=== PATIENT | female | born 1950 | race Caucasian/White ===

== ENCOUNTER 2018-01-06 11:41 | Outpatient (CLI) | payer MEDICARE, OTHER ==
[2015-02-12 11:06] VITALS: BP 136/78
--- NOTE | 2018-01-06 16:20 | Diagnostic Imaging Report ---
LINDA LINDSEY [facility] [address] [facility] [address] [address] Report Submission Date: January 06, 2018 12:45:35 PM CDT Patient Study Name: ELVER ALCOCER Date: January 06, 2018 11:51:52 AM CDT Modality Type: DX Gender: F Description: LOWER EXTREMITY : 50 Institution: [facility] Physician: LINDA LINDSEY Examination: Plain film left foot History: LEFT FOOT, PAIN AND BRUSING AFTER STUBBED LEFT 5TH DIGIT YESTERDAY (Hx ) Findings: 3 views of the left foot demonstrates osteopenia. Mild articular degenerative changes. No fracture or dislocation. Calcaneal spur. No soft tissue swelling. No joint effusion. Impression: Osteopenia and degenerative changes. No fracture. Electronically signed on January 06, 2018 12:45:35 PM CDT by: Vinayak KOEHLER
== END 2018-01-06 11:43 ==
LOC: RAD 11:41
PROVIDERS: ATTEND Physician Assistant
DX: M79.672 Pain in left foot (principal)
CPT/HCPCS: 73630

== ENCOUNTER 2018-05-04 11:46 | Outpatient (CLI) | payer MEDICARE, OTHER ==
[2015-02-12 11:06] VITALS: BP 136/78
--- NOTE | 2018-05-04 15:38 | Diagnostic Imaging Report ---
LINDA LINDSEY [facility] [address] [facility] [address] [place], [place]. [address] Report Submission Date: May 04, 2018 2:36:07 PM CDT Patient Study Name: ELVER ALCOCER Date: May 04, 2018 11:53:41 AM CDT Modality Type: CT\SR Gender: F Description: CT ABD PELVIS W/O CO : 50 Institution: [facility] Physician: LINDA LINDSEY CT abdomen and pelvis without contrast History: Hematuria and right flank pain Technique: Helically acquired images were obtained from the hemidiaphragms to the pelvic floor without IV or oral contrast using stone protocol. Findings: Lung bases are clear aside from mild atelectasis posteromedially at the right lung base adjacent to prominent osteophytes of the thoracic spine. On these images without IV contrast, which limits solid organ evaluation, the liver, spleen, adrenal glands and pancreas appear unremarkable. There has been a cholecystectomy. There are no renal or ureteral stones. At the upper pole of the right kidney, there is a hypodense and smoothly marginated mass with internal Hounsfield units of 5-14 consistent with a 3 cm cyst. Aortic atherosclerosis is present without aneurysm. Small and large bowel loops are normal in caliber. There is quite small fat containing periumbilical hernia. There is been a hysterectomy. The bladder is decompressed. There is no free fluid in the abdomen or pelvis. Posterior fusion hardware is present at L5/S1. There is considerable beam hardening artifact but there is a grade 2 anterolisthesis of L4 upon L5. Multilevel disc space narrowing with vacuum disc phenomenon is present at the lower thoracic and upper lumbar spine. Impression: Postoperative and degenerative findings of the spine as described. Status post cholecystectomy. 3 cm cyst upper pole right kidney. Aortic atherosclerosis. No acute intra-abdominal or intrapelvic abnormality. No nephro- or urolithiasis. Electronically signed on May 04, 2018 2:36:07 PM CDT by: Doreen KOEHLER
== END 2018-05-04 11:47 ==
LOC: RAD 11:46
PROVIDERS: ATTEND Physician Assistant
DX: R31.9 Hematuria, unspecified (principal); R10.9 Unspecified abdominal pain
CPT/HCPCS: 74176

== ENCOUNTER 2018-09-28 15:54 | Outpatient (CLI) | payer MEDICARE, OTHER, MEDICAID ==
[2015-02-12 11:06] VITALS: BP 136/78
[2018-09-28 16:24] LABS: BASOPHILS % 0.6 (0.0-1.5); EOSINOPHILS % 2.6 % (0.0-6.8); MONOCYTES % 5.4 % (0.0-11.0)
[2018-09-28 16:25] LABS: NEUTROPHILS # 4.7 # k/uL (1.4-7.7)
[2018-09-28 16:53] LABS: eGFR (Non-African) > 60
--- NOTE | 2018-09-28 20:54 | Diagnostic Imaging Report ---
NAGA SANTOS [facility] [address] [facility] [address] [address] Report Submission Date: Sep 28, 2018 5:21:00 PM ENGINEERING LAB TECHNICIAN Patient Study Name: ELVER ALCOCER Date: Sep 28, 2018 4:47:58 PM ENGINEERING LAB TECHNICIAN Modality Type: DX Gender: F Description: CHEST 2VIEW : 50 Institution: [facility] Physician: NAGA SANTOS Chest, 2 view History: Recent flu Findings: The heart size is mildly enlarged. There is atherosclerosis of the aorta.. The lungs are free of acute infiltrate but there is chronic coarsening the central bronchovascular markings. There is no pleural effusion or pneumothorax identified. The osseous structures are normal. Impression: 1. No acute pulmonary disease. 2. Mild cardiomegaly and aortic atherosclerosis. Electronically signed on Sep 28, 2018 5:21:00 PM ENGINEERING LAB TECHNICIAN by: Cody KOEHLER
--- NOTE | 2018-10-08 11:06 | Diagnostic Imaging Report ---
NAGA SANTOS [facility] [address] [facility] [address] [address] Report Submission Date: Sep 28, 2018 6:55:46 PM ZIPPER MEASURER Patient Study Name: ELVER ALCOCER Date: Sep 28, 2018 5:58:25 PM ZIPPER MEASURER Modality Type: DX Gender: F Description: ABDOMEN 1VIEW : 50 Institution: [facility] Physician: NAGA SANTOS Abdomen AP view History: Abdominal pain. Fluid. Findings: The bowel gas pattern is normal. No evidence of bowel obstruction. No abnormal intra-abdominal calcifications are present. Posterior fusion is seen in the lower lumbar spine. Impression: 1. Normal bowel gas pattern. Electronically signed on Sep 28, 2018 6:55:46 PM ZIPPER MEASURER by: Cody Gonsalez 2 view Abdomen History: Abdominal pain. Fluid. ADDENDUM: 2 view Abdomen Findings: The bowel gas pattern is normal. No evidence of bowel obstruction. No abnormal intra-abdominal calcifications are present. Posterior fusion is seen in the lower lumbar spine. Impression: 1. Normal bowel gas pattern. Addendum electronically signed by Cody Gonsalez on October 01, 2018 2:05:03 PM ZIPPER MEASURER MTDD
== END 2018-09-28 15:55 ==
LOC: LAB 15:54
PROVIDERS: ATTEND Family Medicine
DX: R10.84 Generalized abdominal pain (principal); I51.7 Cardiomegaly
CPT/HCPCS: 36415; 71046; 74019; 80053; 83690; 85025

== ENCOUNTER 2019-05-02 13:36 | Outpatient (CLI) | payer OTHER, MEDICAID ==
[2015-02-12 11:06] VITALS: BP 136/78
--- NOTE | 2019-05-05 10:04 | Diagnostic Imaging Report ---
NAGA SANTOS [facility] [address] [facility] [address] [address] Report Submission Date: May 02, 2019 3:49:20 PM CDT Patient Study Name: ELVER ALCOCER Date: May 02, 2019 1:34:40 PM CDT Modality Type: DX Gender: F Description: RIBS UNILAT 2 VIEWS : 50 Institution: [facility] Physician: NAGA SANTOS Exam: Right ribs. History: Status post fall. AP and oblique views of the right hemithorax are submitted. Acute fracture of the right 4th rib is noted. The remainder of the ribs appear grossly intact. No pleural or periosteal reaction is seen. No pneumothorax is identified. Impression: Acute fracture of the right 4th rib. Electronically signed on May 02, 2019 3:49:20 PM CDT by: Perfecto KOEHLER
== END 2019-05-02 13:38 ==
LOC: RAD 13:36
PROVIDERS: ATTEND Family Medicine
DX: R07.89 Other chest pain (principal)
CPT/HCPCS: 71100

== ENCOUNTER 2019-08-18 11:04 | Outpatient (CLI) | payer OTHER, MEDICAID ==
[2015-02-12 11:06] VITALS: BP 136/78
[2019-08-18 11:13] LABS: BASOPHILS % 0.7 % (0.0-1.5); NEUTROPHILS # 5.1 # k/uL (1.4-7.7)
[2019-08-18 12:24] LABS: eGFR (Non-African) > 60
== END 2019-08-18 11:09 ==
LOC: LABRHC 11:04
PROVIDERS: ATTEND Family Medicine
DX: E86.0 Dehydration (principal); A08.4 Viral intestinal infection, unspecified
CPT/HCPCS: 80053; 85025